=== PATIENT | male | born 1995 | race African-American/Black ===

== ENCOUNTER 2022-05-11 09:42 | Inpatient (IN) ==
[2022-05-11 10:31] LABS: Bacteria,Urine Few per hpf (None-Few); Bilirubin,Urine Negative (Negative); Blood,Urine Negative (Negative); Clarity,Urine Clear (Clear); Color,Urine Light-Yellow (Yellow); Glucose,Urine (UA) >=1000 mg/dL (Normal); Ketones,Urine Negative (Negative); Leukocyte Esterase,Urine Negative (Negative); Mucus,Urine Few per lpf (None-Few); Nitrite,Urine Negative (Negative); Protein,Urine Trace mg/dL (Neg-Trace); RBC,Urine 0-3 per hpf (0-3); Specific Gravity,Urine > 1.030 (1.010-1.025); Squamous Epithelial Cell,Urine Few per hpf (None-Few); Urobilinogen,Urine Normal (Normal); WBC,Urine 0-3 per hpf (0-3)
[2022-05-11 10:40] LABS: Amphetamine Screen,Urine Negative ng/mL (Cutoff=1000); Barbiturate Screen,Urine Negative ng/mL (Cutoff=200); Benzodiazepines Screen,Urine Negative ng/mL (Cutoff=200); Cannabinoid Screen,Urine Negative ng/mL (Cutoff = 50); Cocaine Screen,Urine Negative ng/mL (Cutoff= 300); Opiate Screen,Urine Negative ng/mL (Cutoff=300); Phencyclidine Screen,Urine Negative ng/mL (Cutoff=25)
[2022-05-11 10:50] LABS: Acetaminophen < 10 mcg/mL (10-20); BUN/Creatinine Ratio 14 (6-26); Blood Urea Nitrogen 9 mg/dL (6-20); Calcium 9.3 mg/dL (8.6-10.3); Carbon Dioxide 25 mEq/L (23-29); Chloride 99 mEq/L (98-107); Ethanol < 10 mg/dL (Less than 10); Glucose 351 mg/dL (70-105); Osmolality,Calculated 287 (280-300); Potassium 4.1 mEq/L (3.5-5.1); Salicylate < 2.5 mg/dL (15.0-30.0); Sodium 132 mEq/L (136-145)
[2022-05-11 10:54] LABS: Mean Corpuscular HGB Conc 33.1 g/dL (31.6-35.5); Red Cell Distribution Width 11.9 % (11.5-14.5)
[2022-05-11 10:56] LABS: Basophils % 0.4 %; Eosinophils # 0.1 K/mcL (0.0-0.6); Eosinophils % 1.1 %; Hematocrit 47.4 % (37.5-50.1); Hemoglobin 15.7 g/dL (12.9-16.9); Immature Granulocytes % 0.2 % (0-4); Immature Platelets 7.7 % (1.1-6.1); Lymphocytes # 2.8 K/mcL (0.6-4.6); Lymphocytes % 34.4 %; Mean Corpuscular Hemoglobin 28.2 pg (28.0-33.3); Mean Corpuscular Volume 85.1 fL (83.0-100.0); Mean Platelet Volume 10.7 fL (9.4-12.4); Monocytes # 0.7 K/mcL (0.0-1.3); Monocytes % 8.4 %; Neutrophils # 4.6 K/mcL (1.6-8.9); Platelet Count 302 K/mcL (140-400); Red Blood Count 5.57 M/mcL (4.19-5.50); Segmented Neutrophils % 55.5 %; White Blood Count 8.2 K/mcL (4.3-11.1)
[2022-05-11 11:27] LABS: Adenovirus Not Detected (Not Detect); Bordetella Pertussis Not Detected (Not Detect); Chlamydophila pneumoniae Not Detected (Not Detect); Coronavirus 229E Not Detected (Not Detect); Coronavirus HKU1 Not Detected (Not Detect); Coronavirus NL63 Not Detected (Not Detect); Coronavirus OC43 Not Detected (Not Detect); Human Metapneumovirus Not Detected (Not Detect); Human Rhinovirus/Enterovirus Not Detected (Not Detect); Influenza A Subtype 2009 H1 Not Detected (Not Detect); Influenza B Not Detected (Not Detect); Mycoplasma pneumoniae Not Detected (Not Detect); Parainfluenza Virus 1 Not Detected (Not Detect); Parainfluenza Virus 2 Not Detected (Not Detect); Parainfluenza Virus 3 Not Detected (Not Detect); Parainfluenza Virus 4 Not Detected (Not Detect); Respiratory Syncytial Virus Not Detected (Not Detect); SARS-CoV-2 Not Detected (Not Detect)
[2022-05-11] MEDS ORDERED: 0.9 % Sodium Chloride 1,000 ML IVC ONE (12:04)
[2022-05-11 13:13] LABS: VBG HCO3 29 mEq/L (21-27); VBG PCO2 47 mmHg (41-51); VBG PO2 187 mmHg (25-50)
[2022-05-11] MEDS ORDERED: Insulin LISPRO 300 UNITS/3 ML VIAL SUBQ ONE (13:16)
[2022-05-11] MEDS ORDERED: haloperidoL 5 MG TABLET PO PRN (15:37)
[2022-05-11] MEDS ORDERED: Haloperidol Lactate 5 MG/ML VIAL IM PRN (15:37)
[2022-05-11] MEDS ORDERED: *HR* LORazepam 1 MG TABLET PO PRN (15:37)
[2022-05-11] MEDS ORDERED: *HR* LORazepam 2 MG/ML VIAL IM PRN (15:37)
[2022-05-11] MEDS ORDERED: Acetaminophen 325 MG TABLET PO PRN (15:37)
[2022-05-11] MEDS: Insulin LISPRO 300 UNITS/3 ML VIAL SUBQ SCH (18:09)
[2022-05-11] MEDS: Insulin DETEMIR 100 UNIT/ML X5UNITS SUBQ SCH (20:41)
[2022-05-11] MEDS: hydrOXYzine pamoate 25 MG CAPSULE PO PRN (20:42)
[2022-05-11] MEDS: traZODone 50 MG TABLET PO PRN (20:42)
[2022-05-12] MEDS: Insulin LISPRO 300 UNITS/3 ML VIAL SUBQ SCH ×3 (09:20→16:38)
[2022-05-12] MEDS: Insulin DETEMIR 100 UNIT/ML X5UNITS SUBQ SCH ×2 (09:47→20:52)
[2022-05-12] MEDS: BuPROPion XL (24 HR) 150 MG TABLET PO SCH (10:05)
[2022-05-12] MEDS ORDERED: Mag Hydrox/Al Hydrox/Simeth 30 ML UDC PO PRN (10:12)
[2022-05-12] MEDS ORDERED: MOM Conc 10 ML UD.LIQ PO PRN (10:12)
[2022-05-12] MEDS: Nicotine 2 MG GUM BC PRN ×2 (11:12→16:59)
[2022-05-12] MEDS ORDERED: Ibuprofen 400 MG TABLET PO PRN (16:47)
[2022-05-12] MEDS ORDERED: Insulin DETEMIR 100 UNIT/ML X5UNITS SUBQ ONE (18:33)
[2022-05-12] MEDS: hydrOXYzine pamoate 25 MG CAPSULE PO PRN (20:39)
[2022-05-12] MEDS: traZODone 50 MG TABLET PO PRN ×2 (20:39→22:47)
[2022-05-12] MEDS ORDERED: OXcarbazepine 150 MG TABLET PO SCH (21:00)
[2022-05-12 21:13] VITALS: PULSE 80; O2SAT 97
[2022-05-13] MEDS: Insulin LISPRO 300 UNITS/3 ML VIAL SUBQ SCH ×2 (08:15→12:31)
[2022-05-13] MEDS: BuPROPion XL (24 HR) 150 MG TABLET PO SCH (08:17)
[2022-05-13] MEDS: Insulin DETEMIR 100 UNIT/ML X5UNITS SUBQ SCH (09:24)
[2022-05-13 09:47] VITALS: BP 125/89; TEMP 98.4
[2022-05-13 13:58] LABS: Estimated Average Glucose 344 mg/dl; Hemoglobin A1C 13.6 %
== END 2022-05-13 12:45 | disposition home or self-care (01) | DRG 753 ==
LOC: EMEROOARM 09:42 → 1ANU 15:21
PROVIDERS: ADMIT Psychiatry & Neurology Psychiatry; ATTEND Psychiatry & Neurology Psychiatry